=== PATIENT | male | born 1955 | race Caucasian/White ===

== ENCOUNTER 2021-06-25 19:24 | Emergency (ER) | payer MEDICARE, BC ==
[2021-06-25] MEDS ORDERED: Proparacaine 0.5% Ophth Soln 15 ML Bottle EYELF ONE (20:28)
[2021-06-25] MEDS ORDERED: Erythromycin Base 0.5% Ophth Oint 1 GM Tube EYELF ONE (21:05)
== END 2021-06-25 21:21 | disposition home or self-care (01) ==
LOC: JP.ED 19:24
DX: T15.02XA Foreign body in cornea, left eye, initial encounter (principal); E78.00 Pure hypercholesterolemia, unspecified; I10 Essential (primary) hypertension; Z88.0 Allergy status to penicillin
CPT/HCPCS: 65222; 99281; 99282-25; A9270-GY